=== PATIENT | male | born 1940 | race Caucasian/White ===

== ENCOUNTER 2017-08-13 08:20 | Inpatient (IN) | payer OTHER, SELFPAY ==
[~2017-08-13] VITALS: Ht 175.3 cm; Wt 74.8 kg
[~2017-08-13 08:20] MED LIST: ALLEGRA ALLERG180 MG PO; BREO ELLIPTA 11 EACH INH; CENTRUM SILVER1 EAC4 PO; FLAGYL500 MG PO; LEVAQUIN 750 M750 MG PO; OMEPRAZOLE20 M2 PO; PREDNISONE 10 M10 MG PO; ROBITUSSIN AC Liquid PO; TESSALON PERLE100 MG PO; XOPENEX 0.63 MG/3 M1 INH
[2017-08-13 08:26] VITALS: BP 108/85
[2017-08-13] MEDS ORDERED: DOXYCYCLINE 10100 MG PO (08:33)
[2017-08-13 08:53] LABS: URINE BILIRUBIN NEGATIVE (Negative); URINE BLOOD 1+ (Negative); URINE CLARITY CLEAR; URINE COLOR YELLOW; URINE GLUCOSE-RANDOM NEGATIVE (Negative); URINE KETONES NEGATIVE (Negative); URINE LEUKOCYTES-REFLEX NEGATIVE (Negative); URINE NITRITE-REFLEX NEGATIVE (Negative); URINE PROTEIN 1+ (Negative); URINE SPECIFIC GRAVITY <= 1.005 (1.005-1.030); URINE UROBILINOGEN 0.2 E.U./dl (0.2-1.0)
[2017-08-13 09:02] LABS: BACTERIA-REFLEX None Seen /HPF (None Seen); CASTS None Seen /LPF (None Seen); CRYSTALS None Seen /LPF (None Seen); MUCUS None Seen strn/LPF (None Seen); SQUAMOUS 0-3 Few /LPF (0-3); URINE RBC 3-10 Few /HPF (0-2); URINE WBC-REFLEX 0-5 Rare /HPF (0-5)
[2017-08-13 09:08] LABS: HEMOGLOBIN 12.8 gm/dL (14.0-18.0); MCH 31.5 pg (26.0-34.0); MCHC 33.7 g/dL (28.0-37.0); MCV 93.5 fL (80.0-100.0); MPV 7.7 fl. (7.2-11.1); NUCLEATED RBCS 0 /100WBC; PLATELET COUNT* 416 thou/uL (150-400); RBC 4.06 mil/uL (4.50-6.00); RDW-CV 14.1 % (10.5-14.5); WBC 14.7 thou/uL (4.0-11.0)
[2017-08-13 09:17] LABS: ANION GAP 6 mmol/L (7-16); BUN 17 mg/dL (7-18); CALCIUM 9.6 mg/dL (8.5-10.1); CHLORIDE 98 mmol/L (98-107); CO2 30 mmol/L (21-32); CREATININE 1.2 mg/dL (0.6-1.3); GLUCOSE 108 mg/dL (70-99); POTASSIUM 3.9 mmol/L (3.5-5.1); SODIUM 134 mmol/L (136-145)
[2017-08-13 09:23] LABS: ALKALINE PHOSPHATASE 143 U/L (46-116); LIPASE 129 U/L (73-393); SGOT 23 U/L (15-37); SGPT 38 U/L (30-65); TOTAL BILIRUBIN 0.5 mg/dL (<0.1-1.0); TOTAL PROTEIN 7.5 g/dL (6.4-8.2); TROPONIN-I LEVEL <0.06 ng/mL (<0.06)
[2017-08-13 09:24] LABS: APTT 30.4 Seconds (25.0-31.3); INR 1.2; PROTIME 11.4 Seconds (9.20-11.50)
[2017-08-13 09:42] LABS: ABSOLUTE EOSINOPHILS 0.1 thou/uL (0.0-0.7); ABSOLUTE LYMPHOCYTES 1.6 thou/uL (0.8-5.3); ABSOLUTE NEUTROPHILS 12.9 thou/uL (1.6-8.1); PLATELET ESTIMATE ADEQUATE
[2017-08-13 09:54] LABS: INFLUENZA A ANTIGEN None Detected (None Detect); INFLUENZA B ANTIGEN None Detected (None Detect)
--- NOTE | 2017-08-13 11:31 | EKG ---
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1940 Requested By: Clarence Canchola Order Number: [id number] MD: Clay Ma Measurements Intervals [place] Rate: 98 P: 78 MO: 134 QRS: 87 QRSD: 89 T: 56 QT: 346 QTc: 442 Interpretive Statements Sinus rhythm Probable left atrial enlargement Borderline right axis deviation Borderline T abnormalities, anterior leads Compared to ECG 06/18/2017 22:00:22 Sinus tachycardia no longer present Electronically Signed On 08-13-2017 11:31:20 [employer]INO GAM[employer] WORK[employer] by Clay Ma [email or web address] <ELECTRONICALLY SIGNED> By: Clay Ma MD, [facility] 08/13/17 1131 [id number] [id number] Clay Ma MD, [facility] /EPI
[2017-08-13 12:17] LABS: MAGNESIUM 1.8 mg/dL (1.8-2.4); PHOSPHORUS* 3.4 mg/dL (2.5-4.9)
[2017-08-13 15:05] VITALS: BP 143/84
[2017-08-13 17:12] VITALS: BP 143/84
[2017-08-13 17:50] VITALS: BP 132/67
[2017-08-13 21:10] VITALS: BP 154/73
[2017-08-14 04:03] LABS: ABSOLUTE BASOPHILS 0.1 thou/uL (0.0-0.2); ABSOLUTE EOSINOPHILS 0.1 thou/uL (0.0-0.7); ABSOLUTE LYMPHOCYTES 1.4 thou/uL (0.8-5.3); ABSOLUTE MONOCYTES 1.1 thou/uL (0.0-1.2); ABSOLUTE NEUTROPHILS 11.7 thou/uL (1.6-8.1); BASOPHILS 0.5 %; EOSINOPHILS 0.9 %; HEMATOCRIT 33.5 % (42.0-52.0); HEMOGLOBIN 11.2 gm/dL (14.0-18.0); LYMPHOCYTES 9.6 %; MCH 31.4 pg (26.0-34.0); MCHC 33.5 g/dL (28.0-37.0); MCV 93.5 fL (80.0-100.0); MONOCYTES 7.6 %; MPV 7.4 fl. (7.2-11.1); NUCLEATED RBCS 0 /100WBC; PLATELET COUNT* 394 thou/uL (150-400); POLYS 81.4 %; RBC 3.58 mil/uL (4.50-6.00); RDW-CV 14.4 % (10.5-14.5); WBC 14.4 thou/uL (4.0-11.0)
[2017-08-14 04:32] LABS: CALCIUM 8.6 mg/dL (8.5-10.1); CREATININE 1.1 mg/dL (0.6-1.3); POTASSIUM 4.2 mmol/L (3.5-5.1)
[2017-08-14 07:40] VITALS: BP 163/73
--- NOTE | 2017-08-14 07:42 | NUR ---
PT SLEPT MOST OF NIGHT. ASSESSMENT DOCUMENTED. MEDS GIVEN PER E-MAR. IV PATENT, FLUIDS INFUSING. PT REPORTED PAIN, PAIN MEDS GIVEN PER E-MAR. NO CONCERNS AT THIS TIME, WILL CONTINUE TO MONITOR.
[2017-08-14 12:02] LABS: ABSOLUTE BASOPHILS 0.1 thou/uL (0.0-0.2); ABSOLUTE EOSINOPHILS 0.1 thou/uL (0.0-0.7); ABSOLUTE LYMPHOCYTES 1.3 thou/uL (0.8-5.3); ABSOLUTE MONOCYTES 1.1 thou/uL (0.0-1.2); ABSOLUTE NEUTROPHILS 13.3 thou/uL (1.6-8.1); BASOPHILS 0.7 %; EOSINOPHILS 0.8 %; HEMATOCRIT 34.6 % (42.0-52.0); HEMOGLOBIN 11.4 gm/dL (14.0-18.0); LYMPHOCYTES 8.3 %; MCH 31.3 pg (26.0-34.0); MCHC 33.1 g/dL (28.0-37.0); MCV 94.5 fL (80.0-100.0); MONOCYTES 6.6 %; MPV 7.2 fl. (7.2-11.1); NUCLEATED RBCS 0 /100WBC; PLATELET COUNT* 421 thou/uL (150-400); POLYS 83.6 %; RBC 3.66 mil/uL (4.50-6.00); RDW-CV 14.1 % (10.5-14.5); WBC 15.9 thou/uL (4.0-11.0)
--- NOTE | 2017-08-14 12:06 | NUR ---
SW met with pt to complete initial assessment, introduce self, and SW role. Pt alert and oriented. Pt and pt friend present. Pt lives at home with and had been independent with mobility and ADLs. Pt does not have any DME or history with HH or SNF. Pt did not anticipate any dc needs. SW to follow.
[2017-08-14 16:00] VITALS: BP 144/57
--- NOTE | 2017-08-14 17:51 | NUR ---
PATIENT A&OX4, 2L O2 VIA NC, IV LEFT AC FLUIDS INFUSSING. IV LEAKING, NEW IV PLACED IN RIGHT FOREARM 20G FLUIDS INFUSSING. UP WITH ASSISTX1 STEADY GIAT. C/O LOWER ABD PAIN, MINIMAL TO PARTIAL RELIEF WITH MEDICATION. NG TUBE INITIATED, SET TO INTERMITTEN SUCTION, 65 AT NOSE. NO OTHER CONCERNS AT THIS TIME. APPROPRIATE AND COOPORATIVE WITH CARE.
[2017-08-14 20:10] VITALS: BP 146/74
[2017-08-15 04:36] LABS: ABSOLUTE EOSINOPHILS 0.2 thou/uL (0.0-0.7); ABSOLUTE LYMPHOCYTES 1.5 thou/uL (0.8-5.3); ABSOLUTE MONOCYTES 1.2 thou/uL (0.0-1.2); ABSOLUTE NEUTROPHILS 12.4 thou/uL (1.6-8.1); BASOPHILS 0.2 %; EOSINOPHILS 1.6 %; HEMATOCRIT 33.1 % (42.0-52.0); HEMOGLOBIN 10.9 gm/dL (14.0-18.0); LYMPHOCYTES 9.7 %; MCH 31.2 pg (26.0-34.0); MCHC 32.9 g/dL (28.0-37.0); MCV 95.1 fL (80.0-100.0); MONOCYTES 7.5 %; MPV 7.8 fl. (7.2-11.1); NUCLEATED RBCS 0 /100WBC; PLATELET COUNT* 412 thou/uL (150-400); RBC 3.49 mil/uL (4.50-6.00); RDW-CV 14.4 % (10.5-14.5); WBC 15.3 thou/uL (4.0-11.0)
[2017-08-15 04:57] LABS: ALBUMIN 2.5 g/dL (3.4-5.0); CALCIUM 8.8 mg/dL (8.5-10.1); CREATININE 1.1 mg/dL (0.6-1.3); MAGNESIUM 1.8 mg/dL (1.8-2.4); POTASSIUM 3.9 mmol/L (3.5-5.1); TOTAL BILIRUBIN 0.3 mg/dL (<0.1-1.0); TOTAL PROTEIN 6.2 g/dL (6.4-8.2)
--- NOTE | 2017-08-15 04:59 | NUR ---
PT SLEPT SOUNDLY DURING THE NIGHT, IV FLUIDS INFUSED, NG TO LIS, URINARY DIVERSION WITH BAG IN PLACE, PRN PAIN MEDICATION AT HS, CALL LIGHT IN REACH, BED ALARM ON FOR SAFETY, WILL CONTINUE TO MONITOR
[2017-08-15 09:35] VITALS: BP 142/61
--- NOTE | 2017-08-15 12:30 | NUR ---
UNABLE TO REINSERT N/G TUBE. I AM ABLE TO GET TO THE 50 CM BY THAT TIME PT IS RECTHING VERY HARD AND TUBE GETS VOMITED UP. DR LLANES AWARE SUGESTED THAT SURGERY BE MADE AWARE TO SEE IF RESIDENT CAN TRY TO PLACE. CALLED PLACED TO SURGERY RESIDENT AT THIS TIME AWAITING CALL BACK.
[2017-08-15 16:00] VITALS: BP 116/53
--- NOTE | 2017-08-15 16:04 | CON ---
[address] [address] CONSULTATION Name: ALETHEA MALDONADO Room: [address] IN .R.#: [id number] Admission: 08/13/17 Attend Phys: Marcie Herrera Discharge: Date of : 42 Report #: [id number] THIS REPORT FOR: //name// CC: Lizzie Mayo DATE OF SERVICE: 08/14/2017 INFECTIOUS DISEASE CONSULTATION ATTENDING PHYSICIAN: Memo Mayo DO. REASON FOR EVALUATION: Post-appendicitis right lower quadrant abscess. HISTORY OF PRESENT ILLNESS: Chart reviewed, the patient examined. This is a 77-year-old with a history of bladder cancer in 06/2015, was with right lower quadrant pain and was confirmed to have appendicitis and underwent laparoscopic appendectomy on 06/19/2017. Postoperative course was complicated by generally not feeling well, somewhat nonspecific. More recently, had developed right lower quadrant pain and was evaluated including CT, which has question of some side fluid collection and probable abscess. He has had a chronic cough and has been started on doxycycline as well. No fevers. Denies any nausea or diarrhea and questionably experiencing some adverse drug effect with the doxycycline with vomiting. He is scheduled to undergo percutaneous attempted drainage today. Of note, he has multiple drug hypersensitivities. Current antibiotic regimen includes aztreonam, metronidazole and vancomycin. ALLERGIES: LISTED TO PENICILLIN, CEPHALOSPORINS, SULFA, CLINDAMYCIN, QUINOLONES; PRIMARILY INVOLVES RASH, EXCEPT FOR THE QUINOLONES, WHICH MAY BE MORE ADVERSE DRUG EFFECT WITH NAUSEA AND EMESIS. CURRENT MEDICATIONS: Noted above antibiotics, pantoprazole, enoxaparin, p.r.n. analgesics and antiemetics. PAST MEDICAL HISTORY: In addition to the bladder cancer, previous cystectomy, hernias and COPD. SOCIAL HISTORY: Former smoker. No ethanol. FAMILY HISTORY: Noncontributory. REVIEW OF SYSTEMS: Denies significant pulmonary-related complaints. PHYSICAL EXAMINATION: GENERAL: He is pleasant. He is in moderate distress. He has, what appears to be, paroxysms of pain. He clenches up and grits his teeth[place] [address] CONSULTATION Name: JOELALETHEA GUTHRIE Bina Room: [address]#: [id number] Admission: 08/13/17 Attend Phys: Marcie Herrera Discharge: Date of : 42 Report #: [id number] affect, undernourished. VITAL SIGNS: Temperature 97.7, pulse 118, respirations 22 and blood pressure 163/73. SKIN: Warm, dry. No rashes. HEENT: Otherwise, unremarkable. NECK: Supple. LUNGS: Diminished breath sounds, clear. HEART: Regular, tachycardic. I do not appreciate a murmur. ABDOMEN: Tender in the right lower quadrant as well, extending to the midline. I do not believe there are any true peritoneal signs. GENITOURINARY: Deferred. RECTAL: Deferred. LABORATORY DATA: Blood cultures sterile thus far. Lactic acid 0.7. Electrolytes: Sodium 141, potassium 4.2, chloride 108, bicarbonate is 23 and BUN and creatinine 14 and 1.1. CBC: White count of 14.4, H and H 11.2 and 33.5 and platelets of 394,000. Chest x-ray, some chronic changes. CT abdomen and pelvis, inflammatory appearance to the right lower quadrant, suggestive of recurrent right lower quadrant abscess. Influenza antigen was negative. Liver functions unremarkable. Albumin of 3.0. Total protein 7.5. Estimated GFR 59. Urinalysis, 0-5 white cells. ASSESSMENT AND PLAN: Right lower quadrant pelvic abscess. We will continue combination therapy. It should give us pretty reasonable coverage for chronic related liset. We will await findings in efforts to percutaneously drain and see how he does clinically, but given the number of drug hypersensitivities, we may be significantly limited in terms of oral options and certainly the obregon will be draining the abscess. <ELECTRONICALLY SIGNED> By: Reinaldo Mehta MD 08/15/17 1604 1104 1224Joclem Mehta MD /nt
--- NOTE | 2017-08-15 18:49 | NUR ---
FAMILY WAS HERE MOST OF DAY. N/G TUBE REMANS OUT. PT TOLERATING CLEAR LIQUIDS. NO COMPLAINTS OF NAUSEA OR ABD PAIN NOTED.PT TALKATIVE. PT WAS UP AND WALKING IN HALLWAY WITH SB ASSIST.PT IS PROGRESSING TOWARDS GOALS.
[2017-08-15 19:55] VITALS: BP 110/48
[2017-08-16] VITALS (7 sets, daily range): BP systolic 90–131; BP diastolic 46–63
[2017-08-16 04:43] LABS: ABSOLUTE EOSINOPHILS 0.2 thou/uL (0.0-0.7); ABSOLUTE LYMPHOCYTES 1.5 thou/uL (0.8-5.3); ABSOLUTE MONOCYTES 0.8 thou/uL (0.0-1.2); ABSOLUTE NEUTROPHILS 10.3 thou/uL (1.6-8.1); BASOPHILS 0.3 %; EOSINOPHILS 1.4 %; HEMATOCRIT 28.3 % (42.0-52.0); HEMOGLOBIN 9.3 gm/dL (14.0-18.0); MCH 31.7 pg (26.0-34.0); MCV 96.1 fL (80.0-100.0); MONOCYTES 6.4 %; MPV 7.8 fl. (7.2-11.1); NUCLEATED RBCS 0 /100WBC; PLATELET COUNT* 339 thou/uL (150-400); POLYS 79.9 %; RBC 2.94 mil/uL (4.50-6.00); RDW-CV 13.9 % (10.5-14.5); WBC 12.9 thou/uL (4.0-11.0)
--- NOTE | 2017-08-16 04:55 | NUR ---
PT SLEPT AT INTERVALS DURING THE NIGHT, IV FLUIDS AND ANTIBIOTICS GIVEN, PLEASANT, REMAINS ON 02 AT 2L/NC, UP SBA TO THE BATHROOM, URINE BACK IN PLACE, NO C/O PAIN OR NAUEA TONIGHT, CALL LIGHT IN REACH, WILL CONTINUE TO MONITOR
[2017-08-16 05:03] LABS: ALBUMIN 2.3 g/dL (3.4-5.0); CALCIUM 8.2 mg/dL (8.5-10.1); CREATININE 1.1 mg/dL (0.6-1.3); MAGNESIUM 1.7 mg/dL (1.8-2.4); POTASSIUM 3.3 mmol/L (3.5-5.1); TOTAL BILIRUBIN 0.3 mg/dL (<0.1-1.0); TOTAL PROTEIN 5.6 g/dL (6.4-8.2)
[2017-08-16 05:13] LABS: PREALBUMIN 9.5 mg/dL (18.0-35.7)
--- NOTE | 2017-08-16 19:29 | NUR ---
PATIENT RESTING IN BED. PATIENT DENIES ANY PAIN. PATIENT DENIES ANY NAUSEA. PATIENT HAD LOW GRADE FEVER THIS EVENING, TYLENOL GIVEN. PATIENT IS TOLERATING DIET. PATIENT IS UP AD BLANCA IN ROOM AND WALKED IN HALLS THIS AFTERNOON. PATIENT DENIES ANY NEEDS AT THIS TIME. CALL LIGHT WITHIN REACH. WILL CONTINUE TO MONITOR.
[2017-08-17 04:46] LABS: CALCIUM 8.7 mg/dL (8.5-10.1); POTASSIUM 3.3 mmol/L (3.5-5.1)
[2017-08-17 04:47] LABS: HEMATOCRIT 31.2 % (42.0-52.0); HEMOGLOBIN 10.1 gm/dL (14.0-18.0); MCH 31.1 pg (26.0-34.0); MCHC 32.5 g/dL (28.0-37.0); MCV 95.7 fL (80.0-100.0); MPV 8.2 fl. (7.2-11.1); RBC 3.26 mil/uL (4.50-6.00); RDW-CV 14.1 % (10.5-14.5); WBC 12.7 thou/uL (4.0-11.0)
--- NOTE | 2017-08-17 05:07 | NUR ---
PT SLEPT AT INTERVALS DURING THE NIGHT, IV FLUIDS INFUSED, URINE BAG IN PLACE, PLEASANT, REMAINS ON 02 AT 2L/NC, INCENTIVE SPIROMETRY ORDERED AND ENCOURAGED TO USE, CALL LIGHT IN REACH, WILL CONTINUE TO MONITOR
[2017-08-17 07:35] VITALS: BP 138/69
[2017-08-17 15:53] VITALS: BP 130/60
--- NOTE | 2017-08-17 16:17 | NUR ---
PATIENT A&OX4, 2L O2 VIA, IV RIGHT FOREARM, SALINE LOCK. UP STAND BY, STEADY GAIT. NO C/O PAIN/N/V. TOLLERATING FULL REGULAR DIET. NO OTHER CONCERNS AT THIS TIME. APPROPRIATE AND COOPORATIVE WITH CARE.
[2017-08-17 19:45] VITALS: BP 124/67
[2017-08-18 04:30] LABS: ABSOLUTE EOSINOPHILS 0.1 thou/uL (0.0-0.7); ABSOLUTE LYMPHOCYTES 0.9 thou/uL (0.8-5.3); ABSOLUTE MONOCYTES 0.7 thou/uL (0.0-1.2); ABSOLUTE NEUTROPHILS 6.9 thou/uL (1.6-8.1); BASOPHILS 0.4 %; EOSINOPHILS 1.7 %; HEMATOCRIT 29.6 % (42.0-52.0); HEMOGLOBIN 10.1 gm/dL (14.0-18.0); LYMPHOCYTES 10.7 %; MCH 31.9 pg (26.0-34.0); MCHC 34.2 g/dL (28.0-37.0); MCV 93.2 fL (80.0-100.0); NUCLEATED RBCS 0 /100WBC; PLATELET COUNT* 338 thou/uL (150-400); POLYS 79.2 %; RBC 3.17 mil/uL (4.50-6.00); RDW-CV 13.8 % (10.5-14.5); WBC 8.7 thou/uL (4.0-11.0)
--- NOTE | 2017-08-18 04:36 | NUR ---
PT SLEPT MOST OF SHIFT. ASSESSMENT DOCUMENTED. MEDS GIVEN PER E-MAR. PT REPORTED A HEADACHE, TYLENOL GIVEN PER E-MAR. ILLIOCONDUIT PATENT. IV PATENT. NO CONCERNS AT THIS TIME, WILL CONTINUE TO MONITOR.
[2017-08-18 04:40] LABS: ALBUMIN 2.4 g/dL (3.4-5.0); CALCIUM 8.4 mg/dL (8.5-10.1); CREATININE 0.9 mg/dL (0.6-1.3); TOTAL BILIRUBIN 0.3 mg/dL (<0.1-1.0); TOTAL PROTEIN 5.9 g/dL (6.4-8.2)
[2017-08-18 04:54] LABS: POTASSIUM 2.8 mmol/L (3.5-5.1)
--- NOTE | 2017-08-18 06:08 | NUR ---
PT HAD CRITICAL POTASSIUM, DR NOTIFIED, ELECTOLYTE PROTOCOL STARTED. PT HAD EPISODE OF EMESIS AFTER MORNING PILLS WERE TAKEN.
[2017-08-18 08:35] VITALS: BP 144/62
[2017-08-18 16:52] VITALS: BP 90/47
[2017-08-18] MEDS ORDERED: FLAGYL500 MG PO (17:08)
[2017-08-18 17:11] VITALS: BP 90/47
[2017-08-18] MEDS ORDERED: COLACE100 MG PO (17:17)
--- NOTE | 2017-08-18 17:35 | NUR ---
PATIENT DISCHARGED TO HOME. DISCHARGE PAPERS REVIEWED AND SIGNED. PRESCRIPTION AND INFORMATION SHEETS GIVEN. IV REMOVED. PATIENT DENIES ANY FURTHER NEEDS. PATIENT TAKEN BY WHEELCHAIR TO EXIT. LEFT WITH .
[2017-09-26] MEDS ORDERED: VITAMIN D-32000 UNIT PO (15:01)
== END 2017-08-18 17:35 | disposition home or self-care (01) | DRG 871 ==
LOC: M.ERS 08:20 → M.TBA-ER 11:02 → M.3W 11:02
PROVIDERS: Family Medicine; Internal Medicine; Surgery; ADMIT Internal Medicine
DX: A41.9 Sepsis, unspecified organism (principal); K65.1 Peritoneal abscess; K56.609 Unspecified intestinal obstruction, unspecified as to partial versus complete obstruction; E44.0 Moderate protein-calorie malnutrition; Z85.51 Personal history of malignant neoplasm of bladder; Z79.899 Other long term (current) drug therapy; Z88.1 Allergy status to other antibiotic agents; Z88.0 Allergy status to penicillin; Z88.2 Allergy status to sulfonamides; Z87.891 Personal history of nicotine dependence

== ENCOUNTER → 2017-09-17 | Outpatient (CLI) | payer OTHER, SELFPAY ==
[~2017-09-17] MED LIST changes: +AZITHROMYCIN 2250 MG PO; +COLACE100 MG PO; +DOXYCYCLINE 10100 MG PO; +GABAPENTIN 100100 MG PO; +KEFLEX500 M1 PO; +TYLENOL325 MG PO; +VITAMIN D-32000 UNIT PO
== END ==
LOC: M.CT 08:26
DX: I15.0 Renovascular hypertension (principal); R91.8 Other nonspecific abnormal finding of lung field; J43.8 Other emphysema; N28.1 Cyst of kidney, acquired; I70.0 Atherosclerosis of aorta; M47.896 Other spondylosis, lumbar region; M51.36 Other intervertebral disc degeneration, lumbar region; C18.0 Malignant neoplasm of cecum; Z90.49 Acquired absence of other specified parts of digestive tract; Z85.51 Personal history of malignant neoplasm of bladder; Z90.6 Acquired absence of other parts of urinary tract

== ENCOUNTER 2017-10-12 09:16 | Inpatient (IN) | payer OTHER, SELFPAY ==
[~2017-10-12] VITALS: Ht 175.3 cm; Wt 68.9 kg
[~2017-10-12 09:16] MED LIST changes: -AZITHROMYCIN 2250 MG PO; -GABAPENTIN 100100 MG PO; -KEFLEX500 M1 PO; -TYLENOL325 MG PO
[2017-10-12 12:00] VITALS: BP 150/79
[2017-10-12 18:32] VITALS: BP 152/82
--- NOTE | 2017-10-12 18:52 | NUR ---
PATIENT ARRIVED TO UNIT AT 1820. ALERT AND ORIENTED X4. ASSESSMENT COMPLETED AND CHARTED. VSS ON 4 LITERS 02. PATIENT HAS NO COMPLAINTS OF PAIN OR NAUSEA AT THIS TIME. PATIENT HAS AN ABDOMINAL BLOCK DUE TO SEVERE PAIN IN PACU. PATIENT ORIENTED TO ROOM AND INSTRUCTED TO CALL NURSING STAFF TO ASSIST WITH GETTING OUT OF BED TO PREVENT FALLS. CALL LIGHT IS WITHIN REACH. NURSING WILL CONTINUE TO MONITOR.
[2017-10-12 20:00] VITALS: BP 156/80
[2017-10-13] VITALS (7 sets, daily range): BP systolic 128–166; BP diastolic 66–83
[2017-10-13 03:13] LABS: HEMATOCRIT 36.8 % (42.0-52.0); HEMOGLOBIN 12.3 gm/dL (14.0-18.0); MCH 31.2 pg (26.0-34.0); MCHC 33.5 g/dL (28.0-37.0); MCV 93.2 fL (80.0-100.0); MPV 7.3 fl. (7.2-11.1); NUCLEATED RBCS 0 /100WBC; PLATELET COUNT* 273 thou/uL (150-400); RBC 3.95 mil/uL (4.50-6.00); RDW-CV 15.5 % (10.5-14.5); WBC 16.7 thou/uL (4.0-11.0)
[2017-10-13 03:26] LABS: CALCIUM 8.4 mg/dL (8.5-10.1); CREATININE 1.3 mg/dL (0.6-1.3); POTASSIUM 5.3 mmol/L (3.5-5.1)
[2017-10-13 06:07] LABS: ABSOLUTE LYMPHOCYTES 1.5 thou/uL (0.8-5.3); ABSOLUTE MONOCYTES 1.2 thou/uL (0.0-1.2); ANISOCYTOSIS Occasional; PLATELET ESTIMATE ADEQUATE
[2017-10-13 06:08] LABS: TOXIC GRANULATION 1+
--- NOTE | 2017-10-13 06:26 | NUR ---
Arrived from PACU at 1820. He had a hemicolectomy. Urostomy also had some methyline placed to checked patency it has been having blueish green urine from dependent drainage bag. He has lapsites x 4 on his abdomen, bowel sounds are hypoactive. He's had pain meds x 2 for abdominal pain. O2 is at 4L n/c. Vitals are stable. He has slept well.
--- NOTE | 2017-10-13 10:42 | NUR ---
CM SPOKE TO PATIENT AND TO DISCUSS HOME SITUATION, DISCHARGE PLANNING, AND TO INFORM OF THE ROLE OF CM. PATIENT ALERT, ORIENTED, AND INDEPENDENT WITH ADL'S. PATIENT ABLE TO PERFORM PATTERN KEEPER AND DRIVES. PATIENT RESIDES AT HOME WITH SPOUSE. PATIENT USES 0 DME. PATIENT HAS NO HX OF HH OR SNF. PATIENT PLANS TO RETURN HOME AT D/C, AND DOES NOT ANTICIPATE ANY NEEDS. CM WILL REMAIN AVAILABLE TO ASSIST AND FOLLOW NEEDED.
--- NOTE | 2017-10-13 17:27 | NUR ---
PATIENT ALERT AND ORIENTED X 4. VITAL SIGNS STABLE ON 4L O2 NASAL CANULA. UP WITH ASSIST OF ONE TO THE BEDSIDE COMODE. UROSTOMY COV[place] PATENT AND DRAINING. IV PATENT AND FLUIDS INFUSING. PAIN BEING MANAGED WITH IV AND PO PAIN MEDICATION. ADVANCED FROM CLEAR LIQUIDS TO SOFT FIBER DIET. HOURLY ROUNDS MAINTAINED THROUGHOUT THE SHIFT. CALL LIGHT WITHIN REACH. NURSING WILL CONTINUE TO MONITOR.
[2017-10-14 03:00] VITALS: BP 138/64
[2017-10-14 04:42] LABS: ABSOLUTE LYMPHOCYTES 1.1 thou/uL (0.8-5.3); ABSOLUTE MONOCYTES 1.7 thou/uL (0.0-1.2); ABSOLUTE NEUTROPHILS 16.2 thou/uL (1.6-8.1); BASOPHILS 0.2 %; EOSINOPHILS 0.1 %; HEMATOCRIT 34.5 % (42.0-52.0); HEMOGLOBIN 11.6 gm/dL (14.0-18.0); LYMPHOCYTES 5.8 %; MCH 31.4 pg (26.0-34.0); MCHC 33.6 g/dL (28.0-37.0); MCV 93.6 fL (80.0-100.0); MONOCYTES 8.7 %; MPV 7.8 fl. (7.2-11.1); NUCLEATED RBCS 0 /100WBC; PLATELET COUNT* 294 thou/uL (150-400); POLYS 85.2 %; RBC 3.68 mil/uL (4.50-6.00); RDW-CV 15.7 % (10.5-14.5)
[2017-10-14 05:01] LABS: CALCIUM 8.1 mg/dL (8.5-10.1); CREATININE 1.2 mg/dL (0.6-1.3); MAGNESIUM 1.8 mg/dL (1.8-2.4); PHOSPHORUS* 2.6 mg/dL (2.5-4.9); POTASSIUM 4.6 mmol/L (3.5-5.1)
--- NOTE | 2017-10-14 07:57 | NUR ---
PATIENT HAS SLEPT WELL THROUGHOUT THE NIGHT WITHOUT ANY ISSUES. PAIN WELL CONTROLLED. PATIENT DID HAVE SOME NAUSEA BUT NO EMESIS. NAUSEA MEDICATION GIVEN AND CHARTED. LAP SITES X 4 TO ABDOMINAL AREA ARE C/D/I. UROSTOMY TO RIGHT QUADRANT WITH PATIENTS HOME CATHETER BAG ATTACHED TO DEPENDENT DRAINAGE. ADEQUATED URINE OUTPUT CLEAR/YELLOW. IV IN LEFT HAND-D5 1/2 NS W/20K @ 50ML/HR. VSS ON HIGH FLOW ON 11L, ALTHOUGH PATIENT DID HAVE LOW GRADE TEMP OF 100.0. PATIENT WAS ENCOURAGED TO USE INCENTIVE SPIROMETER WHILE AWAKE. PATIENT INSTRUCTED TO USE CALL LIGHT WHEN NEEDING ASSISTANCE. HOURLY ROUNDS MADE. WILL CONTINUE WITH PLAN OF CARE AND NURSING TO MONITOR.
[2017-10-14 08:54] VITALS: BP 121/59
--- NOTE | 2017-10-14 13:28 | NUR ---
REPORT GIVEN TO SUSANNA TERRY. PT TO BE TRANSFERRED TO TELE
[2017-10-14 16:00] VITALS: BP 134/62
--- NOTE | 2017-10-14 16:00 | NUR ---
REPORT GIVEN ASSUMED PATIENT CARE PATIENT AND FAMUILY SETTLED IN ROOM
[2017-10-14 19:40] VITALS: BP 148/69
[2017-10-14 23:57] VITALS: BP 149/79
[2017-10-15 04:20] VITALS: BP 127/73
--- NOTE | 2017-10-15 04:45 | NUR ---
ASSUMED CARE OF PT AT 1900. PT IS ALERT AND ORIENTED. VSS. PERRLA. NO COMPLAINTS OF PAIN. SOME NAUSEA NOTED. PT IS IN SINUS RYTHM ON THE TELEMETRY. PT IS RESTING COMFORTABLY IN BED. RESPIRATIONS ARE EVEN AND NONLABORED. WILL CONTINUE TO MONITOR PT.
[2017-10-15 08:15] VITALS: BP 110/67
[2017-10-15 08:20] LABS: ABSOLUTE LYMPHOCYTES 0.8 thou/uL (0.8-5.3); ABSOLUTE MONOCYTES 1.3 thou/uL (0.0-1.2); ABSOLUTE NEUTROPHILS 14.7 thou/uL (1.6-8.1); BASOPHILS 0.3 %; EOSINOPHILS 0.1 %; HEMATOCRIT 33.4 % (42.0-52.0); HEMOGLOBIN 11.2 gm/dL (14.0-18.0); LYMPHOCYTES 4.6 %; MCH 30.9 pg (26.0-34.0); MCHC 33.5 g/dL (28.0-37.0); MCV 92.3 fL (80.0-100.0); MPV 7.5 fl. (7.2-11.1); NUCLEATED RBCS 0 /100WBC; PLATELET COUNT* 294 thou/uL (150-400); RBC 3.62 mil/uL (4.50-6.00); WBC 16.9 thou/uL (4.0-11.0)
[2017-10-15 08:38] LABS: ANION GAP 7 mmol/L (7-16); BUN 20 mg/dL (7-18); CALCIUM 8.5 mg/dL (8.5-10.1); CHLORIDE 101 mmol/L (98-107); CO2 28 mmol/L (21-32); CREATININE 1.2 mg/dL (0.6-1.3); GLUCOSE 113 mg/dL (70-99); POTASSIUM 4.7 mmol/L (3.5-5.1); SODIUM 136 mmol/L (136-145); TROPONIN-I LEVEL <0.06 ng/mL (<0.06)
[2017-10-15 11:38] VITALS: BP 139/75
[2017-10-15 15:53] VITALS: BP 121/65
--- NOTE | 2017-10-15 18:16 | EKG ---
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1940 Requested By: Dottie Babin Order Number: [id number] Tiffanie MD: Festus Solis Measurements Intervals [place] Rate: 116 P: 69 DE: 175 QRS: 68 QRSD: 94 T: 53 QT: 304 QTc: 423 Interpretive Statements Sinus tachycardia Baseline abnormality over right precordium, suspect artifact Compared to ECG 08/13/2017 08:44:17 right precordial changes suggesting artifact noted Electronically Signed On 10-15-2017 18:16:39 CDT by Festus Solis [email or web address] <ELECTRONICALLY SIGNED> By: Festus Solis MD, FAC 10/15/17 1816 1043 1043 Festus Solis MD, [facility] /EPI
--- NOTE | 2017-10-15 19:39 | NUR ---
ASSUMED PT CARE AT 0730, FULL ASSESMENT DONE CHARTED. PT A/O X4, FORGETFUL AT TIMES. PT C/O NAUSEA AFTER HAVING CLINDAMYCIN IV, REQUESTING ZOFRAN PRIOR TO GETTING THE IV ABX. PTS HERE AND ASKES FOR THE SAME INFO MULTIPLE TIMES. SHE AND THE PT WERE ABLE TO SPEAK TO SURGERY DRS AT LENGTH TODAY ABOUT TEST RESULTS. PT WAS C/O HEART BURN. PT GIVEN MYLANTA, PEPCID AND PROTONIX IV, PT REPORTS FEELING "MUCH BETTER" AFTER THE MEDS. PTS EKG ABNORMAL THIS AM, SPOKE TO DR GIBBONS ON THE UNIT AND DR PARKS WHO ORDERED CARDIOLOGY CONSULT. NEW EKG NORMAL THIS AFTERNOON. NO OTHER NEW ORDERS RECIEVED. PTS VSS, ST ON THE MONITOR. PT TOLERATING CLEAR LIQUIDS. FALL PRECATIONS IN PLACE, CALL LIGHT IN REACH. REPORT GIVEN TO MARK MULLINS
[2017-10-15 20:00] VITALS: BP 114/51
[2017-10-16] VITALS: BP 126/60
--- NOTE | 2017-10-16 03:06 | NUR ---
ASSUMED PT CRAE AT 1930, PT IS A&OX4, PT IS TRACING ST ON THE MONITOR, ON 4L NC SATTING MID TO LOW 90'S. PT DENIES ANY PAIN OR NUMBNESS AT THIS TIME. PT C/O SOMR RLQ PAIN DURING ABD ASSESSMENT. PT STATES HE HAS HAD THE HICCUPS AND IS BURPING BUT NOT PASSING GAS, OR HAD A BM THIS SHIFT. PT HAS A UROSTOMY TO RLQ DRAINING TO A COV[place] BAG, DRAINING DARK YELLOW URINE. ON DAY SHIFT, PT C/O OF IV ABX GIVING HIM NAUSEA, THIS RN GAVE NAUSEA MEDICATIONS 30 MINS PRIOR TO ADMIN. OF ABX, PT DENIED ANY COMPLAINTS OF NAUSEA AFTER MEDICATION FINISHED INFUSING. BED IN LOW POSITION, CALL LIGHT IN REACH, BED ALARM ON, YELLOW ARM BAND AND SOCKS IN PLACE. HOURLY ROUNDING COMPLEETED FOR PT SAFETY.
[2017-10-16 05:00] VITALS: BP 133/60
[2017-10-16 05:53] LABS: HEMATOCRIT 30.7 % (42.0-52.0); HEMOGLOBIN 10.3 gm/dL (14.0-18.0); MCHC 33.5 g/dL (28.0-37.0); MCV 92.6 fL (80.0-100.0); MPV 7.8 fl. (7.2-11.1); RBC 3.31 mil/uL (4.50-6.00); RDW-CV 15.6 % (10.5-14.5)
[2017-10-16 06:15] LABS: CALCIUM 8.4 mg/dL (8.5-10.1); CREATININE 1.5 mg/dL (0.6-1.3); POTASSIUM 4.6 mmol/L (3.5-5.1)
[2017-10-16 08:00] VITALS: BP 144/77
--- NOTE | 2017-10-16 11:08 | NUR ---
assumed pt care at 0730, full assesment done as charted.pt a/o x4, drowsy, c/o pain in abdomen, pt is belching and hiccuping. dr henry added new orders, meds given per oct. dr macedo wants pt to see oncology while here. pts educated on meds, she has been able to discuss plan of care with multiple drs. fall precatuions in place, pt uses call light approprialty will continue with plan of care.
--- NOTE | 2017-10-16 12:52 | 2DMMODE ---
[place] [address] 2 D/M-MODE ECHOCARDIOGRAM Name: ALETHEA MALDONADO Room: [address] IN [facility]#: [id number] Admission: 10/12/17 Attend Phys: Orquidea Luz MD Discharge: Date of : 42 Date of Service: 10/16/17 1252 Report #: [id number] THIS REPORT FOR: //name// APPROVED REPORT Study performed: 10/16/2017 10:39:34 EXAM: Comprehensive 2D, Doppler, and color-flow Echocardiogram Patient Location: In-Patient Room #: [facility] Status: routine BSA: 1.88 HR: 117 bpm BP: 133/60 mmHg Rhythm: NSR Other Information Study Quality: Good Indications Tachycardia Chest Pain 2D Dimensions LVEF(%): 84.14 (>50%) IVSd: 10.43 (7-11mm) LVOT Diam: 19.77 (18-24mm) LVDd: 46.92 mm PWd: 8.51 (7-11mm) Ascending Ao: 27.89 (22-36mm) LVDs: 21.98 (25-40mm) Aortic Root: 33.06 mm Montes's LVEF: 84.14 % Volumes Left Atrial Volume (Systole) LA ESV Index: 14.60 mL/m2 Aortic Valve AoV Peak Diony.: 1.43 m/s AO Peak Gr.: 8.18 mmHg LVOT Max P.38 mmHg AO Mean Gr.: 3.97 mmHg LVOT Mean P.02 mmHg LVOT Max V: 1.45 m/s AO V2 VTI: 23.38 cm LVOT Mean V: 0.92 m/s DAMON (VTI): 3.21 cm2 LVOT V1 VTI: 24.43 [place] [address] 2 D/M-MODE ECHOCARDIOGRAM Name: ALETHEA MALDONADO Room: [address] IN ..#: [id number] Admission: 10/12/17 Attend Phys: Orquidea Luz MD Discharge: Date of : 42 Date of Service: 10/16/17 1252 Report #: [id number] E/A Ratio: 0.87 MV Decel. Time: 159.54 ms MV E Max Diony.: 0.76 m/s MV PHT: 46.27 ms MVA (PHT): 4.76 cm2 TDI E/Lateral E': 7.60 Lateral E' Diony.: 0.10 m/s Pulmonary Valve PV Peak Diony.: 1.05 m/s PV Peak Gr.: 4.45 mmHg Tricuspid Valve TR Peak Gr.: 30.25 mmHg RVSP: 35.00 mmHg Left Ventricle The left ventricle is normal size. There is normal LV segmental wall motion. There is normal left ventricular wall thickness. Left ventricular systolic function is normal. LVEF is 65-70%. Grade I - abnormal relaxation pattern. Right Ventricle The right ventricle is normal size. The right ventricular systolic function is normal. Atria The left atrium size is normal. The right atrium size is normal. Aortic Valve The aortic valve is normal in structure. No aortic regurgitation is present. There is no aortic valvular stenosis. Mitral Valve The mitral valve is normal in structure. Trace mitral regurgitation. No evidence of mitral valve stenosis. Tricuspid Valve The tricuspid valve is normal in structure. Trace tricuspid regurgitation. The RVSP is 35-40 mmHg. Pulmonic Valve The pulmonary valve is normal in structure. There is no pulmon[place] [address] 2 D/M-MODE ECHOCARDIOGRAM Name: JOELALETHEA E Room: [address] IN [facility]#: [id number] Admission: 10/12/17 Attend Phys: Orquidea Luz MD Discharge: Date of : 42 Date of Service: 10/16/17 1252 Report #: [id number] Great Vessels The aortic root is normal in size. IVC is normal in size and collapses with >50% inspiration Pericardium There is no pericardial effusion. <Conclusion> The left ventricle is normal size. There is normal left ventricular wall thickness. Left ventricular systolic function is normal. LVEF is 65-70%. Grade I - abnormal relaxation pattern. Trace tricuspid regurgitation. The RVSP is 35-40 mmHg. <ELECTRONICALLY SIGNED> By: Everette Beard MD, FACC 10/16/17 1252 125 125 Everette Beard MD, FACC /INF
[2017-10-16 13:04] VITALS: BP 125/62
--- NOTE | 2017-10-16 15:16 | S ---
[place] [address] SURGICAL PATH RPT PROCEDURE Name: ALETHEA MALDONADO Room: [address] IN M.R.#: [id number] Admission: 10/12/17 Date of : 42 Discharge: Report #: [id number] Path Case #: [id number] PATHOLOGY REPORT COLLECTION DATE: 10/12/2017 RECEIVED DATE: 10/12/2017 SUBMITTING PHYS: Dr. Orqiudea Luz OTHER PHYS: Dr. Lizzie Faye ADDENDUM REPORT (Order Date: 10/16/2017 14:19) ADDENDUM COMMENT: At the request of the oncologist, mismatch repair (MMR) protein immunohistochemical staining was performed. Specimen: Formalin fixed paraffin embedded tissue Specimen ID: [id number], from surgery performed on 10/12/2017 at [facility] Reason for testing: To evaluate for evidence of defective mismatch repair proteins. Method: Immunohistochemical staining for the presence or absence of protein expression of one or more of the following MMR protein markers: MLH1, MSH2, MSH6 and PMS2. Tumor type: Infiltrating moderately differentiated adenocarcinoma Results: MLH1 - Preserved MSH2 - Preserved MSH6 - Preserved PMS2 - Preserved Mismatch Repair Status: MMR Proficient (MMR-P) Interpretation: (MMR-P) All four MMR proteins are preserved within tumor cells. This suggests the presence of normal DNA mismatch repair function within the tumor and an observable defect in mismatch repair is not identified. The likelihood that this patient has an inherited germline mutation syndrome due to defective mismatch repair is reduced but not totally eliminated. If the patient has a strong personal or family history of HPNCC/Jolly syndrome related cancers (colorectal, endometrial, gastric, ovarian, pancreatic, ureter/renal pelvis, biliary tract, brain, small bowel and Ebonie-Sergio syndrome), consider MSI testing by PCR methodology. Suggest clinical correlation and follow up. These test results are designed for screening purposes only and are useful tools in identifying cancer patients that are more likely to have Jolly Syndrome related diagnoses. Tests should be interpreted in the context of clinical findings, family history and laboratory data. Abnormal IHC results for MMR protein expression are not considered diagnostic for Jolly Syndrome. (SHA:; 10/16/2017) [place] [address] SURGICAL PATH RPT PROCEDURE Name: JOELALETHEA E Room: [address] IN [facility].#: [id number] Admission: 10/12/17 Date of : 42 Discharge: Report #: [id number] Path Case #: [id number] Professional services performed by [email or web address] outdoors at [facility], [facility] [place] [address]. Technical services performed by [facility] at [address] [place] [address], [address] [place] [address]. ELECTRONICALLY SIGNED BY: Ashwin Howell M.D. DATE/TIME:10/16/2017 15:15 SPECIMEN(S) RECEIVED: Faiza allen * * * * * * * * * * * * FINAL DIAGNOSIS: Segmental colon "right colon, segmental resection": - Infiltrating moderately differentiated adenocarcinoma extending through the muscularis into the adipose tissue (pT3) MEASURING 2.8 CM IN GREATEST DIMENSION. IT IS 12.8 CM FROM THE PROXIMAL MARGIN WHICH IS THE CLOSEST MARGIN. - Lymph nodes (14) 1/14 lymph nodes positive for moderately differentiated adenocarcinoma. - The surgical resection margins are viable. (SHA:[facility]; 10/15/2017) SPECIMEN Specimen: Terminal ileum Cecum Ascending colon Procedure: Right hemicolectomy Macroscopic Intactness of Mesorectum: Not applicable TUMOR Primary Tumor Site: Cecum Histologic Type: Adenocarcinoma Histologic Grade: Other: moderately differentiated Tumor Size: Greatest dimension (cm): 2.8 Tumor Deposits: Not identified Tumor Extent Site(s) of Direct Extent of Tumor: Cecum Microscopic Tumor Extension: Tumor invades through the muscularis propria into the subserosal adipose tissue or the nonperitonealized pericolic or perirectal soft tissues but does not extend to the serosal surface Macroscopic Tumor Perforation: Not Identified Accessory Tumor Findings Lymph-Vascular Invasion: Not identified Histologic Features Suggestive of Microsatellite Instability Intratumoral Lymphocytic Response (tumor-infiltrating lymphocytes): Mild to moderate (0-2 per high-power [X400] field) Peritumor Lymphocytic Response (Crohn-like response): [place] [address] SURGICAL PATH RPT PROCEDURE Name: ALETHEA MALDONADO Room: [address] IN [facility]#: [id number] Admission: 10/12/17 Date of : 42 Discharge: Report #: [id number] Path Case #: [id number] Mild to moderate Tumor Subtype and Differentiation: Mucinous tumor component Specify Percentage of Mucinous Tumor Component: 2 Perineural Invasion: Not identified Type of Polyp in Which Invasive Carcinoma Arose: None identified MARGINS All margins uninvolved by invasive carcinoma Distance of Invasive Carcinoma from Closest Margin: Specify (cm): 12.8 Specify Margin: Proximal For Resection Specimens Only Proximal Margin: Uninvolved by invasive carcinoma Distal Margin: Uninvolved by invasive carcinoma Circumferential (Radial) Margin: Not applicable Mesenteric Margin: Uninvolved by invasive carcinoma Distance of Tumor from Margin: Specify (cm): 12.8 LYMPH NODES Regional Lymph Nodes: Number of Lymph Nodes Examined: Specify number: 14 Number of Lymph Nodes Involved: Specify number: 1 STAGE (PTNM) Primary Tumor (pT): pT3: Tumor invades through the muscularis propria into pericolorectal tissues Regional Lymph Nodes (pN): pN1a: Metastasis in 1 regional lymph node ADDITIONAL FINDINGS Additional Pathologic Findings: None identified COMMENT: MSI testing is ordered and an additional report will follow. PATHOLOGIST: Ashwin Howell M.D. REPORT ELECTRONICALLY SIGNED BY: Ashwin Howell M.D. DATE/TIME: 10/15/2017 15:33 * * * * * * * * * * * * GROSS PATHOLOGY: Received in formalin labeled "Alethea Maldonado, right colon" is a bowel resection specimen consisting of a portion of small bowel (11.8 cm in length, 2.2 cm in diameter) cecum (7.5 x 6.0 x 4.6 cm) and proximal colon (10.2 x 3.5 cm). The appendix is not present, and an embedded staple line is identified on the external surface [place], [place] [address] SURGICAL PATH RPT PROCEDURE Name: ALETHEA MALDONADO Room: [address] IN [facility]#: [id number] Admission: 10/12/17 Date of : 42 Discharge: Report #: [id number] Path Case #: [id number] the previous appendix location. The specimen is closed at the proximal and distal margins with staple lines. An anastomosis is identified within the small bowel, which is located 4.8 cm from the proximal margin. The serosa is pink-winchester and ragged with focal hemorrhagic areas, and a moderate amount of mesenteric fat is present. The staple lines are removed and the specimen is opened to reveal that the small bowel anastomosis has an embedded well-healed staple line present. A-pink-winchester ulcerated firm mass is identified in the cecum, at the area of the previous appendiceal orifice. The mass measures 2.8 x 1.8 cm, and is located 12.8 cm from the proximal margin, 17.9 cm from the distal margin, and 7.0 cm from the closest mesenteric margin (vascular pedicle). The mass is adjacent to the ileocecal valve. The serosa deep to the mass is inked black, and the mass is serially sectioned to reveal that the mass has a greatest third dimension of 1.7 cm, and grossly invades into the pericolonic fat. The mass does not grossly involve the serosa. The mass surrounds the staple line at the previous appendiceal orifice. The uninvolved mucosa of the terminal ileum is pink-winchester with unremarkable folding. The uninvolved mucosa of the cecum and proximal colon is pink-winchester with slightly flattened edematous folding, and no additional masses or polyps identified. The pericolonic fat is sectioned to reveal multiple pink-winchester possible lymph nodes ranging from. [employer] sections of the specimen are submitted as follows: A1 proximal margin A2-A3 distal margin A4 closest mesenteric margin (vascular pedicle) A5 mass to ileocecal valve A6 mass to uninvolved mucosa A7 mass to inked serosa A8 mass with invasion into pericolonic fat A9 additional mass A10-A11 multiple whole lymph nodes in each cassette A12-A13 one trisected lymph node in each cassette A14 three bisected lymph nodes, inked blue, black, and green A15 two bisected lymph nodes inked green and blue ([facility]; 10/14/2017) CLINICAL HISTORY: Colon mass. INITIAL CPT CODE(S): A; 05135, 64944, 51711, 14774, 43431 Professional services performed [place] [facility] [place] [address] Technical services performed by [facility] at [address] [place] [address] [address] [address]. [place] [address] SURGICAL PATH RPT PROCEDURE Name: ALETHEA MALDONADO Room: [address]#: [id number] Admission: 10/12/17 Date of : 42 Discharge: Report #: [id number] Path Case #: [id number] [facility] [address] [address] PHONE: [phone] DIRECTOR: Jacinto Mroales M.D. * * * END OF REPORT * * *
[2017-10-16 17:19] VITALS: BP 133/60
--- NOTE | 2017-10-16 18:55 | NUR ---
Pt progressing toward goals. He had a medium size soft BM this evening. good urine output. Still C/O pain in ABD. pt given phenergan late morning, pt became very drowsy and had some hallucinations, concerned about pt recieving this med. He report hiccoughs better after recieving it. pt Put on PPN today. New Iv started in left wrist. new Pulmonology and Oncology consults. pt still ST on the monitor. All other VSS. Uses call light appropriatly. Fall precatuions in place. will continue to monitor.
[2017-10-16 20:00] VITALS: BP 125/64; BP 141/70
[2017-10-17 00:57] VITALS: BP 122/62
--- NOTE | 2017-10-17 03:14 | NUR ---
ASSUMED PT CARE AT B1930, PT IS A&OX4, TRACING ST ON THE MONITOR, ON 4L NC SATTING MID TO LOW 90'S. PT HAS IVVF INFUSING PER OCT. CL DIET , TOLERATING IT WELL, PT HAS A UROSTOMY TO RLQ, DRAINING INTO A CATH BAG. PT DENIES ANY PAIN OR NEEDS AT THIS TIME, PT HAS ABD INCISIONS, CLOSED BY MICHI. INCISIONS OPEN TO AIR AT THIS TIME. PT IS REPOSITIONED EVERY 2 HOURS TO PREVENT SKIN BREAKDOWN AND PROMOTE COMFORT. BED IN LOW POSITION, CALL LIGHT IN REACH, BED ALARM ON, YELLOW ARM BAND AND SOCKS IN PLACE. HOURLY ROUNDING COMPLETED FOR PT SAFETY.
[2017-10-17 04:11] VITALS: BP 132/58
[2017-10-17 05:19] LABS: HEMATOCRIT 29.8 % (42.0-52.0); MCH 31.4 pg (26.0-34.0); MCHC 33.6 g/dL (28.0-37.0); MCV 93.4 fL (80.0-100.0); MPV 7.9 fl. (7.2-11.1); RBC 3.19 mil/uL (4.50-6.00); RDW-CV 15.8 % (10.5-14.5); WBC 12.3 thou/uL (4.0-11.0)
[2017-10-17 05:47] LABS: ALBUMIN 2.2 g/dL (3.4-5.0); CALCIUM 8.1 mg/dL (8.5-10.1); CREATININE 1.2 mg/dL (0.6-1.3); MAGNESIUM 2.3 mg/dL (1.8-2.4); POTASSIUM 4.7 mmol/L (3.5-5.1); TOTAL BILIRUBIN 0.5 mg/dL (<0.1-1.0); TOTAL PROTEIN 5.4 g/dL (6.4-8.2)
[2017-10-17 08:00] VITALS: BP 133/57
--- NOTE | 2017-10-17 11:15 | CON ---
[address] [address] CONSULTATION Name: ALETHEA MALDONADO Room: [address] IN .R.#: [id number] Admission: 10/12/17 Attend Phys: Orquidea Luz MD Discharge: Date of : 42 Report #: [id number] THIS REPORT FOR: //name// CC: Orquidea Faye REASON FOR CONSULTATION: Pulmonary nodules. HISTORY OF PRESENT ILLNESS: The patient is a 77-year-old male patient who was admitted to this facility on 10/12/2017 and underwent right hemicolectomy on 10/12/2017 for a mass in his colon. The pathology showed infiltrating, moderately differentiated adenocarcinoma. Postoperatively, he is doing fairly well. He is still on oxygen. When I saw him, he has just received Phenergan and he was drowsy. His at the bedside and daughter provided history. He is a smoker, quit 10 years ago. He has a diagnosis of COPD, although he is not oxygen. He uses at home. Generally, he has no respiratory issues. His pathology showed colon cancer as mentioned above and he underwent CT scan of the chest during this hospitalization that did not show PE, but it showed multiple irregular right lower lobe masses, suspicious for metastatic disease, measuring up to 1.7 cm and these were not present on CT scan on 06/12/2017. He was already started on diet. He looks comfortable, although he is on 4.5 liters oxygen. SOCIAL HISTORY: He is an ex-smoker, quit around 10 years ago. He does not drink alcohol excessively. He does not abuse drugs. PAST MEDICAL HISTORY: Reflux disease, appendectomy and recent resection of the right colon mass, which came back to be adenocarcinoma and hyperlipidemia. REVIEW OF SYSTEMS: It was limited due to the patient's condition. He was sleepy and drowsy at the time of my evaluation. PHYSICAL EXAMINATION: VITAL SIGNS: On examination, he was on 4.5 liters oxygen with O2 saturation more than 90%, blood pressure 130/60, pulse rate of 120 and temperature of 37. GENERAL: Sleepy, but arousable, mumbles some words. HEENT: Head normocephalic, atraumatic. Pupils equal, reactive to light. Not pale or jaundiced sclerae. Ears looks healthy and normal. NECK: Supple. No palpable lymph node. No palpable thyroid. Trachea is central. CHEST: Diminished air movement bilaterally. No wheezes, no crackles. HEART: S1, S2. No murmur. ABDOMEN: Benign, soft, lax and nontender. Positive bowel sounds. Clean wound, colostomy in place. EXTREMITIES: Lower extremities, no edema. No signs of DVT. SKIN: Some ecchymosis around the [place] [address] CONSULTATION Name: JOELALETHEA GUTHRIE Bina Room: [address]#: [id number] Admission: 10/12/17 Attend Phys: Orquidea Luz MD Discharge: Date of : 42 Report #: [id number] LYMPHATICS: No palpable lymph node. LABORATORY DATA: His white blood count is 16,000, hemoglobin 10.3 and platelets of 323,000. Creatinine of 1.5 with potassium of 4.6 and BUN of 28. His CT scan of the chest did not show PE, but showed multiple irregular right lower lobe masses, suspicious for malignancy. MEDICATIONS: His current medications include Pulmicort, pantoprazole, DuoNebs and morphine. ALLERGIES: AMOXICILLIN, CEPHALEXIN, CIPROFLOXACIN, CLAVULANIC ACID, CLINDAMYCIN, LEVOFLOXACIN, PENICILLIN AND SULFA. IMPRESSION: 1. New diagnosis of adenocarcinoma of the colon, status post surgery. 2. Pulmonary nodules. 3. History of smoking. 4. post operative hypoxic resp fialure A CT scan that was done during this hospitalization showed multiple nodules on the right lower lobe, with the largest 1.7 cm. These were not seen on the CT scan of the chest that was done in 06/2017. Given the history of colon cancer and the finding of the CT scan, this is highly suspicious for malignancy. I think he needs lung cancer staging. He would benefit from PET scan as an outpatient for further evaluation of those nodules. Also, I would recommend have Oncology evaluate the patient to establish care with them and follow as an outpatient. Continue using the incentive spirometry. Wean oxygen down as tolerated and start ambulation once okay with surgical service. It was noted the patient is already on Lovenox. Thank you for the consult. Discussed with the nurse. <ELECTRONICALLY SIGNED> By: Guerrero Summers MD 10/17/17 1115 1136 [id number] Summers MD /leila
[2017-10-17 11:49] VITALS: BP 133/69
[2017-10-17 15:55] VITALS: BP 117/56
--- NOTE | 2017-10-17 17:50 | EKG ---
[place] [address] ELECTROCARDIOGRAM REPORT Name: ALETHEA MALDONADO Room: [address] ADM IN M.R.#: [id number] Admission: 10/12/17 Attend Phys: Orquidea Luz MD Discharge: Date of : 42 Report #: [id number] THIS REPORT FOR: //name// [facility] Test Date: 2017-10-15 Test Time: 15:19:10 Pat Name: ALETHEA MALDONADO Department: Room: [address] Gender: M [employer] Supervisor: [place] : 1940 Requested By: Festus Solis Order Number: [id number] Reading MD: Festus Solis Measurements Intervals [place] Rate: 113 P: 80 MS: 124 QRS: 79 QRSD: 66 T: 44 QT: 311 QTc: 427 Interpretive Statements Age not entered, assumed to be 51 years old for purpose of ECG interpretation Sinus tachycardia Probable left atrial enlargement Compared to ECG 08/13/2017 08:44:17 T-wave abnormality no longer present Electronically Signed On 10-17-2017 17:50:31 CDT by Festus Solis [email or web address] <ELECTRONICALLY SIGNED> By: Festus Solis MD, FAC 10/17/17 1750 1519 1519 Festus Solis MD, [facility] /EPI
[2017-10-17 20:00] VITALS: BP 139/62
[2017-10-18 00:19] VITALS: BP 155/76
--- NOTE | 2017-10-18 02:54 | NUR ---
RESTING WITHOUT COMPLAINTS. CONT. PROCALAMINE AT 125 HOUR. CONT. ABX WITHOUT ADVERSE REACTION. DENIES COMPLAINTS OF PAIN OR DISCOMFORT. NO SIGN OF DISTRESS, WILL PROCEED WITH CONT. PLAN OF CARE. BED IN LOW POSITION, CALL LIGHT IN REACH. BED ALARM ON.
[2017-10-18 04:34] VITALS: BP 147/65
[2017-10-18 05:22] LABS: HEMATOCRIT 30.8 % (42.0-52.0); HEMOGLOBIN 10.4 gm/dL (14.0-18.0); MCH 31.5 pg (26.0-34.0); MCHC 33.9 g/dL (28.0-37.0); MCV 92.8 fL (80.0-100.0); MPV 8.3 fl. (7.2-11.1); RBC 3.32 mil/uL (4.50-6.00); RDW-CV 15.6 % (10.5-14.5); WBC 11.8 thou/uL (4.0-11.0)
[2017-10-18 06:11] LABS: CALCIUM 9.3 mg/dL (8.5-10.1); CREATININE 1.1 mg/dL (0.6-1.3); MAGNESIUM 2.7 mg/dL (1.8-2.4); PHOSPHORUS* 3.5 mg/dL (2.5-4.9); POTASSIUM 5.3 mmol/L (3.5-5.1)
[2017-10-18 08:00] VITALS: BP 131/59
[2017-10-18 12:13] VITALS: BP 126/63
[2017-10-18 16:47] VITALS: BP 128/61
--- NOTE | 2017-10-18 17:14 | CON ---
[address] [address] CONSULTATION Name: ALETHEA MALDONADO Room: [address] IN .R.#: [id number] Admission: 10/12/17 Attend Phys: Orquidea Luz MD Discharge: Date of : 42 Report #: [id number] THIS REPORT FOR: //name// CC: Orquidea Faye DATE OF SERVICE: 10/15/2017 Thank you for allowing us to see the patient in cardiovascular assessment. HISTORY OF PRESENT ILLNESS: As you know, he is a pleasant 77-year-old male who underwent right hemicolectomy on 10/12/2017 for a mass. On pathology review, it was found to be an infiltrating moderately differentiated adenocarcinoma. The patient describes hiccups and discomfort associated with the surgery after hiccups or coughing. He did develop heartburn which he describes as typical of his reflux, esophageal pain. He had an EKG after that, which suggested nonspecific right precordial ST-T changes compatible with ischemia. He describes the pain as similar to prior reflux pain and responded to measures are directed at that. He denies a history of antecedent cardiac problems. Risk factors for coronary artery disease include prior cigarette smoking, hypercholesterolemia and a family history of coronary artery disease in his brother. PAST MEDICAL HISTORY: Remarkable for reflux esophagitis, appendectomy, recent resection of right colon mass, found to be adenocarcinoma. FAMILY HISTORY: Remarkable for a brother having an PR. SOCIAL HISTORY: The patient is and retired. He neither drinks nor smokes. REVIEW OF SYSTEMS: Remarkable for the following positives: RESPIRATORY: Known COPD with antecedent cigarette smoking. HEMATOLOGIC AND LYMPHATIC: There is a history of remote bladder cancer, more recently diagnosed adenocarcinoma of the colon. ALLERGIC AND IMMUNOLOGIC: He notes a PENICILLIN ALLERGY. EYES: He wears glasses. 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 Remainder of the review of systems [place] [address] CONSULTATION Name: ALETHEA MALDONADO Room: [address]#: [id number] Admission: 10/12/17 Attend Phys: Orquidea Luz MD Discharge: Date of : 42 Report #: [id number] PHYSICAL EXAMINATION: GENERAL: Demonstrates a thin elderly male in some distress with coughing or hiccupping after the surgery. VITAL SIGNS: Blood pressure is 120/65, pulse rate is 98, respirations are 18 per minute. NECK: Jugular venous pressure is normal. CHEST: Clear. CARDIAC: Reveals normal first and second heart sounds with a soft early systolic murmur. ABDOMEN: Tender after the surgery. EXTREMITIES: Well perfused without edema. LABORATORY DATA: Remarkable for hemoglobin of 11.2, white blood cell count of 16,900 with 294,000 platelets. Sodium 136, potassium 4.7, BUN 20, creatinine 1.2, GFR 59. EKGs are reviewed and the tracing raised questions on 10/15/2017 at 10:[address]-T changes over the right precordium compatible with ischemia but on review of the tracing, artifact is suggested as there was sine wave pattern throughout both the pre- and post-depolarization phase and the abnormality is reflected in both the atrial depolarization and ventricular repolarization. A subsequent tracing on 10/15/2017 at 1519 hours is within normal limits and I suspect the earlier tracing reflect artifact. IMPRESSION: 1. Burning chest pain consistent with reflux esophagitis. 2. Abnormal electrocardiogram, which is most consistent with artifact. 3. Prior cigarette smoking history. 4. Chronic obstructive pulmonary disease. 5. Status post resection of right colon with adenocarcinoma diagnosed. 6. History of bladder cancer. RECOMMENDATIONS: 1. I would not recommend additional cardiovascular assessment at this time on the basis of current clinical data. 2. I would consider a Lexiscan Cardiolite testing after the patient was recovered from the aforementioned surgery given his risk factors, so I suspect the EKG abnormality is artifact. <ELECTRONICALLY SIGNED> By: Festus Solis MD, [facility] 10/18/17 1714 1749 0007Festus Solis MD, FAC /nt
[2017-10-18 20:00] VITALS: BP 127/62; BP 129/82
--- NOTE | 2017-10-18 20:00 | NUR ---
ASSUMED PT CARE AT 0730, FULL ASSESMENT DONE CHARTED. PT C/O SOME ABD PAIN BUT DOES NOT REQUEST PAIN MEDS. TOLERATING FULL LIQUIDS THIS AM, ADVANCED TO SOFT DIET THIS EVENING, TOLERATED THAT WELL TOO. PTS VSS, SR-ST ON THE MONITOR. PT UP TO BSC SEVERAL TIMES TODAY WITH SOFT, LOOSE STOOLS. PT USES CALL LIGHT APPROPRIALTY. FALL PRECATUIONS IN PLACE, REPORT GIVEN TO SUSANNA FLORES
[2017-10-19] VITALS: BP 127/59
[2017-10-19 04:00] VITALS: BP 133/69
--- NOTE | 2017-10-19 05:14 | NUR ---
ASSUMED PT CARE AT 1930, PT IS A&OX4, PT IS TRACING ST ON THE MONITOR, ON 3L NC SATTING MID TO LOW 90'S. PT DENIES ANY PAIN OR NEEDS THIS SHIFT, PT HAS ABD SURGERY SITES THAT ARE OPEN TO AIR AND CLOSED BY MICHI. PT IS UP STB TO THE BSC. HE HAD A BM THIS SHIFT. BED IN LOW POSITION, CALL LIGHT IN REACH, BED ALARM ON, YELLOW ARM BAND AND SOCKS IN PLACE. HOURLY ROUNDING COMPLETED FOR PT SAFETY.
[2017-10-19 05:34] LABS: HEMATOCRIT 28.5 % (42.0-52.0); HEMOGLOBIN 9.6 gm/dL (14.0-18.0); MCH 31.3 pg (26.0-34.0); MCHC 33.5 g/dL (28.0-37.0); MCV 93.4 fL (80.0-100.0); MPV 7.8 fl. (7.2-11.1); RBC 3.05 mil/uL (4.50-6.00); RDW-CV 15.9 % (10.5-14.5); WBC 16.5 thou/uL (4.0-11.0)
[2017-10-19 06:19] LABS: CREATININE 1.1 mg/dL (0.6-1.3); MAGNESIUM 2.2 mg/dL (1.8-2.4); POTASSIUM 5.6 mmol/L (3.5-5.1)
[2017-10-19 06:44] LABS: ALBUMIN 2.3 g/dL (3.4-5.0); CALCIUM 9.1 mg/dL (8.5-10.1); CREATININE 1.1 mg/dL (0.6-1.3); POTASSIUM 5.7 mmol/L (3.5-5.1); TOTAL BILIRUBIN 0.3 mg/dL (<0.1-1.0); TOTAL PROTEIN 5.6 g/dL (6.4-8.2)
[2017-10-19 08:00] VITALS: BP 141/69
--- NOTE | 2017-10-19 08:00 | NUR ---
ASSUMED CARE OF PT ASSESSED AND DOCUMENTED. PT IS ON CARDIAC MONITER TRACING SR HR 90. PT IS A&O WITH NO C/O PAIN. VSS WNL. PT IS AFEBRILE. HE IS ON 3L OF O2. REPOSITIONED PT TO R SIDE. 1 MIDLINE AND 1 PUBIC INCISION WELL APPROXIMATED AND CALIBRATION SPECIALIST. PT HAS ONE STAPLE PULLED LOOSE. BED IS IN LOW POSITION CALL LIGHT IN REACH. WM.
[2017-10-19 11:43] VITALS: BP 135/64
[2017-10-19 18:23] VITALS: BP 127/65
--- NOTE | 2017-10-19 19:51 | NUR ---
PT ALERT AND ORIENTED SOME FORGETFULNESS SBA IV TO LEFT HAND PPN STOPPED PT ATE FAIR T/O DAY DRANK BOOST DIARRHEA CONTINUES DENIES PAIN THOUGH Q2H TURN PT BOTTOM IS RED CREAM APPLIED CALL LIGHT IN REACH FAMILY WILL BE BACK IN THE AM
[2017-10-20] VITALS: BP 131/54
[2017-10-20 04:00] VITALS: BP 127/64
--- NOTE | 2017-10-20 04:46 | NUR ---
ASSUMED CARE OF PATIENT AT [address]-SR ON THE MONITOR O2 SAT MAINTAINED ON 3.5 L NC CONTINUES TO BE UP WITH ASSIST PATIENT DID NOT AMBULATE DURING NOC THE ROUTINE REGIMEN CONTINUES TO BE EFFECTIVE FOR SX MANAGEMENT IV ABX CONTINUES WITHOUT S/SX OF ADVERSE EFFECT SAFETY INTERVENTIONS CONTINUE BED LOWERED WHEELS LOCKED CALL LIGHT IN REACH SIDE RAILS UP REPORT TO BE GIVEN TO ONCTONI MULLINS
[2017-10-20 05:37] LABS: HEMATOCRIT 30.9 % (42.0-52.0); HEMOGLOBIN 10.3 gm/dL (14.0-18.0); MCH 30.9 pg (26.0-34.0); MCHC 33.5 g/dL (28.0-37.0); MCV 92.4 fL (80.0-100.0); MPV 7.8 fl. (7.2-11.1); RBC 3.34 mil/uL (4.50-6.00); RDW-CV 15.8 % (10.5-14.5)
[2017-10-20 05:52] LABS: CALCIUM 9.3 mg/dL (8.5-10.1); CREATININE 1.2 mg/dL (0.6-1.3)
[2017-10-20 08:23] VITALS: BP 123/67
--- NOTE | 2017-10-20 10:55 | NUR ---
ASSUMED CARE OF PT THIS AM AROUND 07- EDGE INKER HEELS IN PLACE ORDERED, TRACING SR- UPON ASSESSMENT PT NOTED TO BE RESTING IN BED- PT A&O X4, FORGETFULL- CONTINENT OF BOWEL, ILEOSTOMY NOTED D/D TO BAG LIGHT GREEN URINE- LCTA, RESP EVEN AND UN-LABORED- VSS, O2 SAT 96% ON 3.5L THIS AM- ABDOMEN SOFT/ROUND/TENDER, BS ACTIVE- MIDLINE INCISONS NOTED TOP WITH 2 MICHI, MIDDLE 7 MICHI, BOTTOM 2 MICHI AND RIGHT LQ 1 STAPLE; AREAS SUDHIR- C/D/I WITH NO DRAINE NOTED- IV NOTED TO RIGHT HAND INTACT AND SL- GOOD PO INTAKE NOTED WITH BREAKFAST THIS AM- UP TO BED SIDE CHAIR WITH MEALS- AT SIDE VISITING, AND ACTIVE WITH CARES- PT DENIES ANY C/O PAIN AT THIS TIME- CALL LIGHT AND PERSONAL BELONGINGS WITH IN REACH- HOURLY ROUNDS IN PLACE R/T SAFETY/NEEDS- ALL NEEDS MET AT THIS TIME-WCTM
[2017-10-20 11:47] VITALS: BP 119/45
[2017-10-20 16:00] VITALS: BP 115/60
--- NOTE | 2017-10-20 17:59 | NUR ---
PT CURRENTLY RESTING IN BED, WATCHING TV- LENS MOUNTER INPLACE ORDERED, TRACING SR/ST- IV TO RT HAND INTACT AND SL- FAIR PO INTAKE NOTED THIS SHIFT WITH MEALS- PAIN X1 TO ABDOMEN REPORTED, PRN TRAMADOL GIVEN AT 1320- PT REPORTS MEDICATIONS TO BE EFFECTIVE- REGLAN DECREASED TO BID THIS SHIFT AND GIVEN PRESCIBED- IV ABT CLIDAMYCIN D/C THIS SHIFT- O2 DECREASED TO 2.5 PER RT, PT TOLERATING WELL-PT UP TO CHAIR WITH MEALS- WALKING HALLWAYS WITH ASSISTANCE TOLERATING WELL- ALL NEEDS MET AT THIST ITIME-WCTM
[2017-10-20 20:00] VITALS: BP 151/60
[2017-10-21] VITALS: BP 112/61
[2017-10-21 04:00] VITALS: BP 124/64
--- NOTE | 2017-10-21 04:47 | NUR ---
ASSUMED CARE OF PATIENT AT 1900 THE PATIENT REMAINS SR ON THE MONITOR O2 SAT MAINTAINED ON 2.5L CONTINUES BEDREST PRN LUDENS ORDERED FOR COMPLAINTS OF THROAT DISCOMFORT POST NEB TREATMENT IN AM REPORTS INTERVENTION NOT EFFECTIVE AND THROAT SORENESS IS WORSENING WITHOUT NOTED COUGH,CONGESTION OR RUNNY NOSE SURGERY PHYSICIAN ROUNDED AT BEDSIDE THIS AM WITHOUT NEW ORDERS OBTAINED PATIENT PROGRESSING TOWARDS GOALS SAFETY INTERVENTIONS CONTINUE BED LOWERED WHEELS LOCKED CALL LIGHT IN REACH SIDE RAILS UP REPORT TO BE GIVEN TO ONCTONI MULLINS
[2017-10-21 09:14] VITALS: BP 119/68
--- NOTE | 2017-10-21 10:12 | NUR ---
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, TRACING SR- UPON ASSESSMENT PT NOTED TO BE RESTING IN BED, WATCHING TV- AT SIDE VISITING- PT A&O X4- CONTINENT OF BOWEL, ILEOSTOMY IN PLACE D/D GREEN URINE- SBA WITH TRANSFERS- PT UP WALKING HALLWAYS, SBA WITH RW AND TOLERATING WELL-VSS, O2 SAT 95% ON RA THIS AM- NO C/O DYSPENA NOTED- ABDOMEN SOFT/FLAT/TENDER, BS ACTIVE- 4 LAP INCISSIONS NOTED WITH MICHI IN PLACE- TOP INCISSION WITH 2 MICHI, MIDDLE INCISSION 7 MICHI, BOTTOM INCISSION 2 MICHI, AND RIGHT LATERAL INCISSION 2 MICHI- INCISSIONS C/D/I, SUDHIR WITH NO DRAINGE OR S/S INFECTION NOTED- BLOOD CULTURES NEGATIVE- IV NOTED TO RIGHT WRIST INTACT AND SL- PT C/O THROAT PAIN, 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
[2017-10-21 12:24] VITALS: BP 109/59
[2017-10-21 16:20] VITALS: BP 111/66
--- NOTE | 2017-10-21 16:40 | NUR ---
PT CURRENLTY RESTING IN BED, WATCHING TV-SUPERVISOR STAGE CARPENTRY IN PLACE AND CONTINUED ORDERED, TRACING SR/ST-IV TO RIGHT WRIST INTACT AND SL- GOOD PO INTAKE NOTED THIS SHIFT WITH MEALS, NO ABDOMINAL PAIN REPORTED WITH MEALS- PRN TYLENOL GIVEN X1 THIS SHIFT R/T SOAR THROAT AT 1414, PT REPORTS MEDICATIONS TO BE EFFECTIVE-BLOOD CULTURES REMAIN NEGATIVE- PT UP TO CHAIR WITH MEALS, WALKIN HALLWAYS SBA WITH RW AND TOLERATING WELL- PT MAKES NEEDS KNOWN- ALL NEEDS MET AT THIS TIME-[facility]
[2017-10-21 20:00] VITALS: BP 122/67
[2017-10-22] VITALS: BP 107/59
[2017-10-22 04:00] VITALS: BP 129/68
--- NOTE | 2017-10-22 05:31 | NUR ---
ASSUMED CARE OF PT AT 1930, NURSING ASSESSMENT COMPLETED AT START OF SHIFT, PT ON TELEL MONITOR TRACING SINUS RHYTHM, PT C/O THROAT SORENESS, MEDICATION ADMINISTERED PER EMAR. SEE EMAR FOR DOCUMENTATION. PT AMBULATED 2WEST HALLWAY X1 THIS SHIFT, PT TOLERATED WELL WITHOUT SOA. ABD SITES CLEAN AND DRY. [address], NO S/S OF INFECTION TO SITE OBSERVED. HOURLY ROUNDING COMPLETED, CALL LIGHT WITHIN REACH. NO FALLS THIS SHIFT.
[2017-10-22 08:00] VITALS: BP 148/70
[2017-10-22] MEDS ORDERED: GABAPENTIN 100100 MG PO (08:57)
[2017-10-22 09:33] VITALS: BP 148/70
--- NOTE | 2017-10-22 13:20 | NUR ---
ORDER RECEIVED TO DISCHARGE PATIENT HOME TO SELF CARE. MED REC, MEDICATION EDUCATION, STROKE EDUCATION, AND NEED FOR FOLLOW UP APPOINTMNETS WITH PULMONARY, SURGERY, AND HEM/ONC COVERED AND STATED UNDERSTOOD BY PATINET. IV AND TELEMETRY REMOVED. PATIENT EDUCATED REGARDING SURGICAL WOUND CARE, NEW MEDICATIONS, AND ACTIVITY TOLERATED PATINET TAKEN VIA WHEELCHAIR TO AWAITING CAR WITH FAMILY PRESENT. HOURLY ROUNDING COMPLETED FOR PATIENT SAFETY.
--- NOTE | 2017-10-24 00:51 | OP ---
[address] [address] OPERATIVE REPORT Name: ALETHEA MALDONADO Room: [address] IN .R.#: [id number] Admission: 10/12/17 Attend Phys: Orquidea Luz MD Discharge: 10/22/17 Date of : 42 Report #: [id number] THIS REPORT FOR: //name// CC: Orquidea Araujo DATE OF SERVICE: 10/12/2017 PREOPERATIVE DIAGNOSIS: Cecal cancer. POSTOPERATIVE DIAGNOSIS: Cecal cancer. PROCEDURES: Hand-assisted laparoscopic surgery, laparoscopic right hemicolectomy with anastomosis, extensive lysis of adhesions, 1 hour. SURGEON: Orquidea Luz M.D. MACHINING DEPARTMENT SUPERVISOR: Geovanna Campbell DO. ESTIMATED BLOOD LOSS: 50 mL. COMPLICATIONS: None. FINDINGS: Excellent perfusion of the anastomosis with angiographic evaluation as well as of urostomy following completion of case. DESCRIPTION OF PROCEDURE: The patient was taken to the operating room. We prepped and draped in a standard sterile fashion, began with a 7 cm incision around the umbilicus. GelPort was placed. Next, transverse colon was brought down into the laparoscopic midline incision. The omentum was taken off the transverse colon using cautery entering into the lesser sac. HALS port was connected to air. We insufflated, placed a 12 mm port in the upper abdomen, two 5s, left lower and suprapubic areas. From this vantage point, the urostomy was intimately involved connected to the terminal ileum and transverse colon; extensive dissection between the colon and anterior abdominal wall, terminal ileum and colon as well as terminal ileum and urostomy. This was primarily performed with cold scissors. Next, we worked from primarily superior to inferior fashion working from the lesser sac over taking down the hepatocolic ligament, taking down the white line of Toldt Gerota's fascia away from us where the cecum had been scarred to the retroperitoneum. This was divided only after confirming that mesenteric attachments were well removed from the course of the ureters to the urostomy. Ileocolic pedicle was identified high and circumferentially dissected. Two clips were placed proximally on the pedicle and the EnSeal device was used to cut distally on the [place] [address] OPERATIVE REPORT Name: ALETHEA MALDONADO Room: [address]#: [id number] Admission: 10/12/17 Attend Phys: Orquidea Luz MD Discharge: 10/22/17 Date of : 42 Report #: [id number] hemostatic. At this point, it was pulled in to the midline. The mesentery leading up to intended points of transection were taken with clamps and silk ties. The anastomosis was lined up in antiperistaltic fashion at the antimesenteric border with 3-0 silks. First, I transected the specimen using 60 CHELSIE blue load staplers. Small enterotomies were made in the small bowel and colon and the CHELSIE fired internally to roll the antimesenteric border inward. The internal lumen was inspected. There was not undue bleeding; however, mucosa of the edges had bright red bleeding. The Allises were used to grasp the lumen and closed the common enterotomy. Finally, we used a TA 60 clamp down waiting to allow compression of the anastomosis and then, it was fired and transected. Three mucosal edges here were bleeding, 3-0 Vicryl used to run under the staple line for hemostasis. Additional stay sutures were placed including at the crotch of the anastomosis. We gave 3 mL of ICG green and viewed the anastomosis at all corners and at the cut edge and it appeared to have excellent perfusion. I milked contents from the small bowel proximally into the anastomosis and that was dilated without any evidence of leak. It was replaced back in the abdomen. Gloves were changed, reinspected the abdomen and made sure there was no bleeding and irrigated copiously. The 12 mm port in the epigastric area was closed with 0 Vicryl and the Mesfin-Anju. The abdomen was allowed to desufflate. We ensured proper lap count. Next, PDS was used to close the fascia in a running manner. Wound was irrigated copiously. Guillermina used to close skin. Sponge, needle, instrument counts were correct at the end of the case. The patient tolerated well. <ELECTRONICALLY SIGNED> By: Orquidea Luz MD 10/24/17 0051 1722 [id number] Jaqueline Luz MD /leila
== END 2017-10-22 12:30 | disposition home or self-care (01) | DRG 329 ==
LOC: M.PRE 09:16 → M.TBA 11:11 → M.2W 11:11 → M.PRE 12:42 → M.ORTHSURG 18:20 → M.2W 10-14 16:03
PROVIDERS: Internal Medicine; Surgery; ADMIT Surgery
DX: C18.0 Malignant neoplasm of cecum (principal); J96.01 Acute respiratory failure with hypoxia; E44.0 Moderate protein-calorie malnutrition; D12.1 Benign neoplasm of appendix; J44.9 Chronic obstructive pulmonary disease, unspecified; R91.1 Solitary pulmonary nodule; E78.5 Hyperlipidemia, unspecified; K66.0 Peritoneal adhesions (postprocedural) (postinfection); K21.9 Gastro-esophageal reflux disease without esophagitis; Z85.528 Personal history of other malignant neoplasm of kidney; Z93.2 Ileostomy status; Z85.51 Personal history of malignant neoplasm of bladder; Z68.22 Body mass index [BMI] 22.0-22.9, adult; Z79.51 Long term (current) use of inhaled steroids; Z79.899 Other long term (current) drug therapy; Z87.891 Personal history of nicotine dependence; Z90.49 Acquired absence of other specified parts of digestive tract; Z82.49 Family history of ischemic heart disease and other diseases of the circulatory system

== ENCOUNTER → 2017-10-26 | Outpatient (CLI) | payer OTHER ==
[~2017-10-26] MED LIST changes: +AZITHROMYCIN 2250 MG PO; +GABAPENTIN 100100 MG PO; +KEFLEX500 M1 PO; +TYLENOL325 MG PO
[2017-10-26 10:22] LABS: HEMOGLOBIN 12.9 gm/dL (14.0-18.0)
[2017-10-26 10:26] LABS: HEMATOCRIT 39.2 % (42.0-52.0); MCH 30.7 pg (26.0-34.0); MCHC 32.9 g/dL (28.0-37.0); MCV 93.2 fL (80.0-100.0); RBC 4.2 mil/uL (4.50-6.00); RDW-CV 16.1 % (10.5-14.5)
[2017-10-26 10:46] LABS: ANION GAP 10 mmol/L (7-16); BUN 31 mg/dL (7-18); CALCIUM 9.4 mg/dL (8.5-10.1); CHLORIDE 100 mmol/L (98-107); CO2 25 mmol/L (21-32); CREATININE 1.5 mg/dL (0.6-1.3); GLUCOSE 105 mg/dL (70-99); POTASSIUM 4.8 mmol/L (3.5-5.1); SODIUM 135 mmol/L (136-145); TROPONIN-I LEVEL <0.06 ng/mL (<0.06)
== END ==
LOC: M.RAD 09:18
PROVIDERS: Surgery
DX: Z09 Encounter for follow-up examination after completed treatment for conditions other than malignant neoplasm (principal); R05 Cough; L57.0 Actinic keratosis; Z85.51 Personal history of malignant neoplasm of bladder

== ENCOUNTER 2018-02-12 10:07 | Inpatient (IN) | payer OTHER ==
[~2018-02-12] VITALS: Ht 175.3 cm; Wt 69.4 kg
[~2018-02-12 10:07] MED LIST changes: -AZITHROMYCIN 2250 MG PO; -KEFLEX500 M1 PO; -TYLENOL325 MG PO
[2018-02-12 10:12] VITALS: BP 110/59
[2018-02-12 10:45] LABS: ABSOLUTE BASOPHILS 0.1 thou/uL (0.0-0.2); ABSOLUTE EOSINOPHILS 0.1 thou/uL (0.0-0.7); ABSOLUTE LYMPHOCYTES 1.7 thou/uL (0.8-5.3); ABSOLUTE MONOCYTES 1.2 thou/uL (0.0-1.2); ABSOLUTE NEUTROPHILS 11.6 thou/uL (1.6-8.1); BASOPHILS 0.4 %; EOSINOPHILS 0.6 %; HEMATOCRIT 34.2 % (42.0-52.0); HEMOGLOBIN 11.3 gm/dL (14.0-18.0); LYMPHOCYTES 11.4 %; MCH 30.6 pg (26.0-34.0); MCV 92.6 fL (80.0-100.0); MONOCYTES 8.3 %; MPV 7.5 fl. (7.2-11.1); NUCLEATED RBCS 0 /100WBC; PLATELET COUNT* 288 thou/uL (150-400); POLYS 79.3 %; RDW-CV 15.2 % (10.5-14.5); WBC 14.6 thou/uL (4.0-11.0)
[2018-02-12 10:55] LABS: ANION GAP 6 mmol/L (7-16); BUN 24 mg/dL (7-18); CALCIUM 9.1 mg/dL (8.5-10.1); CHLORIDE 105 mmol/L (98-107); CO2 27 mmol/L (21-32); CREATININE 1.4 mg/dL (0.6-1.3); GLUCOSE 105 mg/dL (70-99); POTASSIUM 3.8 mmol/L (3.5-5.1); SODIUM 138 mmol/L (136-145)
[2018-02-12 11:00] LABS: APTT 29.1 Seconds (25.0-31.3); INR 1.2; PROTIME 11.4 Seconds (9.20-11.50)
[2018-02-12 11:06] LABS: ALKALINE PHOSPHATASE 102 U/L (46-116); NT-PRO BRAIN NAT PEPTIDE 327 pg/mL (<300); SGOT 18 U/L (15-37); SGPT 23 U/L (30-65); TOTAL BILIRUBIN 0.4 mg/dL (<0.1-1.0); TOTAL PROTEIN 7.2 g/dL (6.4-8.2); TROPONIN-I LEVEL <0.06 ng/mL (<0.06)
--- NOTE | 2018-02-12 14:32 | EKG ---
[place] [address] ELECTROCARDIOGRAM REPORT Name: ALETHEA MALDONADO Room: [place] [address] ADM IN [facility]#: [id number] Admission: 02/12/18 Attend Phys: Marcie Herrera Discharge: Date of : 42 Report #: [id number] THIS REPORT FOR: //name// [facility] ED Test Date: 2018-02-12 Test Time: 10:32:47 Pat Name: ALETHEA MALDONADO Department: Room: Gender: Liquid Sugar Melter: Surekha JO : 1940 Requested By: Clarence Canchola Order Number: [id number] MD: Wilver Mesa Measurements Intervals [place] Rate: 87 P: 76 RI: 136 QRS: 77 QRSD: 92 T: 60 QT: 350 QTc: 421 Interpretive Statements Sinus rhythm Atrial premature complex Compared to ECG 10/15/2017 15:19:10 Atrial premature complex(es) now present Sinus tachycardia no longer present Electronically Signed On 02-12-2018 14:32:18 CDT by Wilver Mesa [email or web address] <ELECTRONICALLY SIGNED> By: Wilver Mesa MD, [facility] 02/12/18 1432 1032 1032 Wilver Mesa MD, [facility] /EPI
[2018-02-12 15:20] VITALS: BP 127/64
[2018-02-12 16:30] VITALS: BP 134/82
[2018-02-13] VITALS: BP 107/64
[2018-02-13 07:58] VITALS: BP 121/63
[2018-02-13 10:17] VITALS: BP 121/63
[2018-02-13] MEDS ORDERED: KEFLEX500 M1 PO (13:54)
[2018-02-13] MEDS ORDERED: AZITHROMYCIN 2250 MG PO (13:54)
[2018-02-13] MEDS ORDERED: TYLENOL325 MG PO (14:10)
== END 2018-02-13 14:30 | disposition home or self-care (01) | DRG 871 ==
LOC: M.ERS 10:07 → M.TBA-ER 13:31 → M.2W 15:33
PROVIDERS: Family Medicine; ADMIT Internal Medicine
DX: A41.9 Sepsis, unspecified organism (principal); J69.0 Pneumonitis due to inhalation of food and vomit; J96.20 Acute and chronic respiratory failure, unspecified whether with hypoxia or hypercapnia; J44.0 Chronic obstructive pulmonary disease with (acute) lower respiratory infection; Z88.1 Allergy status to other antibiotic agents; Z88.8 Allergy status to other drugs, medicaments and biological substances; Z88.0 Allergy status to penicillin; Z88.2 Allergy status to sulfonamides; Z85.51 Personal history of malignant neoplasm of bladder; Z90.49 Acquired absence of other specified parts of digestive tract; Z98.49 Cataract extraction status, unspecified eye; Z82.49 Family history of ischemic heart disease and other diseases of the circulatory system; Z87.891 Personal history of nicotine dependence; Z79.899 Other long term (current) drug therapy

== ENCOUNTER → 2018-03-06 | Outpatient (CLI) | payer OTHER ==
[~2018-03-06] MED LIST changes: +AZITHROMYCIN 2250 MG PO; +KEFLEX500 M1 PO; +TYLENOL325 MG PO
== END ==
LOC: M.RAD 09:18
DX: J18.1 Lobar pneumonia, unspecified organism (principal); J44.9 Chronic obstructive pulmonary disease, unspecified; Z88.0 Allergy status to penicillin

== ENCOUNTER → 2018-03-20 | Outpatient (CLI) | payer OTHER | LOC: M.RAD 08:15 | DX: J98.4 Other disorders of lung (principal); J18.1 Lobar pneumonia, unspecified organism; J44.9 Chronic obstructive pulmonary disease, unspecified; Z88.0 Allergy status to penicillin ==

== ENCOUNTER → 2018-05-14 | Outpatient (CLI) | payer OTHER | LOC: M.RAD 10:12 | DX: J18.1 Lobar pneumonia, unspecified organism (principal); Z85.038 Personal history of other malignant neoplasm of large intestine ==

== ENCOUNTER → 2018-06-10 | Outpatient (CLI) | payer OTHER ==
[2018-06-10 08:25] LABS: CREATININE 1.4 mg/dL (0.6-1.3)
== END ==
LOC: M.LAB 07:30 → M.CT 08:30
PROVIDERS: Surgery
DX: J98.11 Atelectasis (principal); K76.9 Liver disease, unspecified; N28.1 Cyst of kidney, acquired; K43.2 Incisional hernia without obstruction or gangrene